=== PATIENT | male | born 1955 | race Caucasian/White ===

== ENCOUNTER 2019-10-27 17:07 | Emergency (ER) | payer BC ==
[~2019-10-27 17:07] MED LIST: PHENYLEPHRINE HCL INJ/PF 10 MG/1 ML SDV ONE
[2019-10-27] MEDS ORDERED: NORMAL SALINE 1000 ML 1,000 ML IV PRN (17:15)
--- NOTE | 2019-10-27 17:15 | ER Document Report ---
ED Medical Screen (RME) - General Chief Complaint: Difficulty Swallowing Stated Complaint: DIFFICULTY SWALLOWING Time Seen by Provider: 10/27/19 17:12 Information source: Patient TRAVEL OUTSIDE OF THE [place] IN LAST 30 DAYS: No - HPI Notes: 10/27/19 17:14 This is a 64-year-old male who presents to the emergency room today stating that he took some Aleve prior to arrival and feels as though it is stuck in his throat is unable to get it down he has audible stridorous sounds he also has not taken his blood pressure medicine in over a month and is rather hypertensive.
[2019-10-27] MEDS ORDERED: GLUCAGON,HUMAN RECOMB 1 MG INJ SUBCUT ONE (17:16)
[2019-10-27] MEDS ORDERED: HYDRALAZINE HCL INJ/PF 20 MG/1 ML SDV IV ONE ×2 (17:39→18:57)
[2019-10-27 17:54] LABS: ABSOLUTE LYMPHOCYTES (AUTO) 1.6 10^3/uL (0.5-4.7); ABSOLUTE MONOCYTES (AUTO) 0.5 10^3/uL (0.1-1.4); ABSOLUTE NEUT (AUTO) 6.5 10^3/uL (1.7-8.2); ALBUMIN 4.4 g/dL (3.5-5.0); ALKALINE PHOSPHATASE 84 U/L (38-126); ANION GAP 8 (5-19); ASPARTATE AMINO TRANSFERASE 19 U/L (17-59); BASOPHILS % (AUTO) 0.3 % (0-2); BILIRUBIN,DIRECT 0.3 mg/dL (0.0-0.4); BILIRUBIN,TOTAL 0.8 mg/dL (0.2-1.3); BLOOD UREA NITROGEN 10 mg/dL (7-20); CALCIUM 9.6 mg/dL (8.4-10.2); CARBON DIOXIDE 33 mmol/L (22-30); CHLORIDE 100 mmol/L (98-107); EOSINOPHILS % (AUTO) 0.3 % (0-6); GLUCOSE 168 mg/dL (75-110); HEMATOCRIT 53.8 % (37.9-51.0); HEMOGLOBIN 18.8 g/dL (13.5-17.0); LYMPHOCYTES % (AUTO) 18.1 % (13-45); MEAN CORPUSCULAR HEMOGLOBIN 34.5 pg (27.0-33.4); MEAN CORPUSCULAR HGB CONC 34.9 g/dL (32.0-36.0); MEAN CORPUSCULAR VOLUME 99 fl (80-97); MONOCYTES % (AUTO) 5.8 % (3-13); PLATELET COUNT 118 10^3/uL (150-450); RED BLOOD COUNT 5.45 10^6/uL (4.35-5.55); RED CELL DISTRIBUTION WIDTH 13.2 % (11.5-14.0); SEGMENTED NEUTROPHILS % (AUTO) 75.5 % (42-78); TOTAL CELLS COUNTED % (AUTO) 100 %; TOTAL PROTEIN 7.8 g/dL (6.3-8.2); WHITE BLOOD COUNT 8.6 10^3/uL (4.0-10.5)
--- NOTE | 2019-10-27 18:05 | RADIOLOGY REPORT (SQ) ---
EXAM DESCRIPTION: CHEST SINGLE VIEW COMPLETED DATE/TIME: 10/27/2019 5:54 pm REASON FOR STUDY: htn COMPARISON: CT abdomen and pelvis 07/15/2014. EXAM PARAMETERS: NUMBER OF VIEWS: One view. TECHNIQUE: Single frontal radiographic view of the chest acquired. RADIATION DOSE: NA LIMITATIONS: Patient positioning. FINDINGS: LUNGS AND PLEURA: The patient is rotated. No consolidation, pneumothorax or pleural effus ion. MEDIASTINUM AND HILAR STRUCTURES: Contour normal. HEART AND VASCULAR STRUCTURES: Heart normal in size. No overt vascular congestion. BONES: Multilevel degenerative changes at the spine. HARDWARE: None in the chest. IMPRESSION: NO ACUTE RADIOGRAPHIC FINDING IN THE CHEST. TECHNICAL DOCUMENTATION: JOB ID: [id number] [employer]- All Rights Reserved Reading location - IP/workstation name: [email or web address]
--- NOTE | 2019-10-27 18:42 | ER Document Report ---
ED General <HANK FOREMAN - Last Filed: 10/28/19 01:40> - General TRAVEL OUTSIDE OF THE [place] IN LAST 30 DAYS: No - Related Data Home Medications: supposed to take BP meds <JULITO GONZALEZ - Last Filed: 10/28/19 09:43> - General Chief Complaint: Choked/Choking Stated Complaint: DIFFICULTY SWALLOWING Time Seen by Provider: 10/27/19 17:12 Primary Care Provider: AVRIL GAONA PA-C [Primary Care Provider] - Follow up as needed Notes: 64 year old noncompliant gentleman with dm, htn has complaints of cough, choking and inability to swallow after attempting to ingest 2 advils earlier today. About 1-2 hours prior to presentation took 2 advil and layed down. Now he can not tolerate his secretions well. No recent illness. He has a h/o htn and dm and has been out of his medicine for 1 month or so reportedly. He denies recent difficulty with swallowing. Long time heavy smoker. Goning to follow up with [facility] reportedly but yet to see them. 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 Chart shows past history of right renal abnormality that has not been followed up. tells me that was a kidney stone and is fine now. (JULITO GONZALEZ) - Related Data Allergies/Adverse Reactions: No Known Allergies Allergy (Unverified 10/27/19 17:21) Past Medical History - Social History Frequency of alcohol use: None Drug Abuse: None Lives with: Family Family History: Reviewed & Not Pertinent <HANK FOREMAN - Last Filed: 10/28/19 01:40> - General Information source: Patient - Social History Smoking Status: Current Every Day Smoker Patient has suicidal ideation: No Patient has homicidal ideation: No <JULITO GONZALEZ P - Last Filed: 10/28/19 09:43> Review of Systems - Review of Systems Constitutional: No symptoms reported EENT: No symptoms reported Cardiovascular: No symptoms reported Respiratory: No symptoms reported Gastrointestinal: See HPI, Other - difficulty swallowing Genitourinary: No symptoms reported Male Genitourinary: No symptoms reported Musculoskeletal: No symptoms reported Skin: No symptoms reported Hematologic/Lymphatic: No symptoms reported Neurological/Psychological: No symptoms reported <JULITO GONZALEZ P - Last Filed: 10/28/19 09:43> Physical Exam - Vital signs Interpretation: Normal - General General appearance: Appears well, Alert - HEENT Head: Normocephalic, Atraumatic Eyes: Normal Pupils: PERRL - Respiratory Respiratory status: No respiratory distress Chest status: Nontender Breath sounds: Normal Chest palpation: Normal - Cardiovascular Rhythm: Regular Heart sounds: Normal auscultation Murmur: No - Abdominal Inspection: Normal Distension: No distension Bowel sounds: Normal Tenderness: Nontender Organomegaly: No organomegaly - Extremities General upper extremity: Normal inspection, Nontender, Normal color, Normal ROM, Normal temperature General lower extremity: Normal inspection, Nontender, Normal color, Normal ROM, Normal temperature, Normal weight bearing. No: Nighat's sign - Neurological Neuro grossly intact: Yes Cognition: Normal Orientation: AAOx4 [place] Coma Scale Eye Opening: Spontaneous [place] Coma Scale Verbal: Oriented [place] Coma Scale Motor: Obeys Commands [place] Coma Scale Total: 15 Speech: Normal Motor strength normal: LUE, RUE, LLE, RLE Sensory: Normal - Psychological Associated symptoms: Normal affect, Normal mood - Skin Skin Temperature: Warm Skin Moisture: Dry Skin Color: Normal <JULIOT GONZALEZ P - Last Filed: 10/28/19 09:43> - Vital signs Vitals: Temp Pulse Resp BP Pulse Ox 97.3 F 74 20 228/112 H 97 10/27/19 17:12 10/27/19 17:12 10/27/19 17:12 10/27/19 17:12 10/27/19 17:12 Course - Laboratory Result Diagrams: 10/27/19 17:26 10/27/19 17:26 - Diagnostic Test Radiology reviewed: Reports reviewed <HANK FOREMAN H - Last Filed: 10/28/19 01:40> - Laboratory Result Diagrams: 10/27/19 17:26 10/27/19 17:26 - Diagnostic Test Radiology reviewed: Image reviewed, Reports reviewed - EKG Interpretation by Me EKG shows normal: Sinus rhythm Rate: Normal Rhythm: NSR Ringoes/QRS: Left axis deviation - NSR Left axis deviation 65 BPM repolarization abnormality. My interpretation. <JULITO GONZALEZ P - Last Filed: 10/28/19 09:43> - Re-evaluation Re-evalutation: 10/28/19 01:40 Patient was signed out to me at shift change from Dr. Gonzalez. The patient came to the ER for a food bolus stuck in his throat. Dr. Rodas was able to dislodge the bolus. The patient apparently had a drop in his blood pressure likely from anesthesia. An EKG was done after his procedure and there was a concern of ST depressions. The patient's EKG pos precedure looks no different then the EKG he had on his initial presentation to the ER. Based on the patient's age however, a set of serial Trops were ordered (both were negative). Patient told to have an outpatient stress test. (HANK FOREMAN) 10/27/19 18:40 MDM 64 year old with upper esophageal obstructive symptoms. SBP very elevated upon arrival. Better after IV hydralazine. Discussed with need to get seen regarding the right kidney abnormality. She expressed understanding. Also failing to take htn and dm meds can lead to permanent disability/ . They understand this. 10/27/19 18:42 I have discussed this pt and his symptoms with Dr. Rodas and he has graciously agreed to see and evaluate. 10/27/19 20:43 Pt is returned from the OR and is being recovered in room 19. Reportedly he had a small piece of food in his distal esophagus which was pushed into the stomach without difficulty. At that time or shortly thereafter there was concern that he had developed st depression laterally and he was to be returned to the ED with a troponin and ck added to the labratory evaluation. Additionally a repeat ekg was ordered rapidly. 10/28/19 09:37 Pt was seen and evaluated by me and then turned over to Dr. Foreman after he returned from the OR where he had a lower esophageal food bolus easily pushed into the stomach with no evidence of stricture noted. Report to me was from Dr. Rodas and the anesthesia team. The pt was recovered without event in room 19. Due to the concern over his ekg - which is certainly not normal at baseline - a decision was made to have 2 tropinins drawn and reviewed in this gentleman. Additionally, I discussed the renal abnormality on his R kidney that needs to be addressed as soon as possible. The and he seem to think that was addressed and was a kidney stone. I relayed to them that from the report here that is not the case. He has been provided with medicine to take for his htn and dm until her arranges the close follow up we have discussed. Also knows to stop smoking as we have discussed this as well. (JULITO GONZALEZ) - Vital Signs Vital signs: Temp Pulse Resp BP Pulse Ox 97.6 F 53 L 17 162/77 H 94 10/27/19 18:54 10/27/19 18:54 10/28/19 02:05 10/28/19 02:05 10/28/19 02:05 - Laboratory Laboratory results interpreted by me: 10/27/19 10/27/19 17:26 17:26 Hgb 18.8 H Hct 53.8 H MCV 99 H MCH 34.5 H Plt Count 118 L Carbon Dioxide 33 H Glucose 168 H Critical Care Note - Critical Care Note Total time excluding time spent on procedures (mins): 30 <JULITO GONZALEZ - Last Filed: 10/28/19 09:43> Discharge <HANK FOREMAN - Last Filed: 10/28/19 01:40> - Discharge Admitting Provider: Surgicalist <JULITO GONZALEZ - Last Filed: 10/28/19 09:43> - Discharge Clinical Impression: Structural abnormality of kidney, Hypertensive urgency Esophageal foreign body Qualifiers: Encounter type: initial encounter Qualified Code(s): T18.108A - Unspecified foreign body in esophagus causing other injury, initial encounter Hypertension Qualifiers: Hypertension type: unspecified Qualified Code(s): I10 - Essential (primary) hypertension Diabetes mellitus Qualifiers: Diabetes mellitus type: type 2 Diabetes mellitus usp insulin use: without usp use Diabetes mellitus complication status: with other specified complication Qualified Code(s): E11.69 - Type 2 diabetes mellitus with other specified complication Condition: Fair Disposition: HOME, SELF-CARE Instructions: Esophageal Spasm ([facility]), Esophageal Foreign Object Removal ([facility]), Esophageal Foreign Body ([facility]), Esophagitis ([facility]), High Blood Pressure ([facility]), High Blood Pressure, Requiring Treatment ([facility]), Stop Smoking ([facility]) Additional Instructions: You must follow up regarding the right kidney abnormality. You must have an ultrasound or an MRI or cat scan regarding that kidney. Failure to follow up regarding that may lead to or permanent disability. Please return here for chest pain, shortness of breath or other problems or concerns. Prescriptions: Hydralazine HCl [Apresoline 10 mg Tablet] 10 mg PO QID #40 tab Metformin HCl [Glucophage] 500 mg PO BID #60 tablet Referrals: AVRIL GAONA PA-C [Primary Care Provider] - Follow up as needed
--- NOTE | 2019-10-27 18:43 | PDOC H&P ---
History of Present Illness Admission Date/PCP: AVRIL GAONA PA-C Patient complains of: Inability to swallow History of Present Illness: HÉCTOR BLANKENSHIP is a 64 year old male with a 3 to 4-hour history of an inability to swallow. The patient reports eating ravioli this morning without any difficulty. He also reports taking 2 Advil at 1 PM for a headache, without any difficulty. The patient subsequently ate a ham and cheese "wrap". He felt the ham and cheese gets stuck in his esophagus. He has since been unable to swallow. He cannot tolerate his own secretions. He denies shortness of breath, chest pain, cough, fevers, chills, nausea, vomiting, melena, hematochezia, hematemesis, abdominal pain, dizziness, blurry vision, orthostasis. He is an uncontrolled diabetic, and noncompliant with his diabetic and anti-hypertensive medications. Nothing makes his symptoms better or worse. Social History Smoking Status: Current Every Day Smoker Frequency of Alcohol Use: Social Hx Recreational Drug Use: No Hx Prescription Drug Abuse: No Family History Parental Family History Reviewed: Yes Children Family History Reviewed: Yes Sibling(s) Family History Reviewed.: Yes Medication/Allergy Allergies/Adverse Reactions: No Known Allergies Allergy (Unverified 10/27/19 17:21) Review of Systems Constitutional: ABSENT: anorexia, chills, fatigue Eyes: ABSENT: visual disturbances Ears: ABSENT: hearing changes Nose, Mouth, and Throat: ABSENT: mouth pain, sore throat Cardiovascular: ABSENT: chest pain, dyspnea on exertion Respiratory: ABSENT: cough Gastrointestinal: PRESENT: dysphagia. ABSENT: abdominal pain, bloating, h ematemesis, hematochezia, melena, nausea, vomiting Genitourinary: ABSENT: difficulty urinating Musculoskeletal: ABSENT: back pain Integumentary: ABSENT: diaphoresis, erythema Neurological: ABSENT: confusion, convulsions, dizziness Psychiatric: ABSENT: anxiety, depression Endocrine: ABSENT: cold intolerance, heat intolerance Hematologic/Lymphatic: ABSENT: easy bleeding, easy bruising Physical Exam Vital Signs: Temp Pulse Resp BP Pulse Ox 97.3 F 74 20 203/100 H 97 10/27/19 17:12 10/27/19 17:12 10/27/19 18:00 10/27/19 17:57 10/27/19 18:00 Intake & Output 10/26/19 10/27/19 10/28/19 06:59 06:59 06:59 Weight 78 kg General appearance: PRESENT: no acute distress, cooperative Head exam: PRESENT: atraumatic, normocephalic Eye exam: PRESENT: EOMI, PERRLA. ABSENT: scleral icterus Mouth exam: PRESENT: moist, neck supple Neck exam: ABSENT: meningismus, tenderness, thyromegaly, tracheal deviation Respiratory exam: PRESENT: clear to auscultation maren, unlabored. ABSENT: chest wall tenderness, tachypnea, wheezes Cardiovascular exam: PRESENT: RRR Pulses: PRESENT: normal radial pulses Vascular exam: PRESENT: normal capillary refill GI/Abdominal exam: PRESENT: soft. ABSENT: distended, firm, guarding, tenderness Rectal exam: PRESENT: deferred Musculoskeletal exam: ABSENT: deformity Neurological exam: PRESENT: alert, awake, oriented to person, oriented to place, oriented to time, oriented to situation, CN II-XII grossly intact Psychiatric exam: ABSENT: agitated, anxious, depressed Focused psych exam: ABSENT: delusional Skin exam: ABSENT: cyanosis, erythema, jaundice Results Laboratory Results: 10/27/19 17:26 10/27/19 17:26 10/27/19 10/27/19 17:26 17:26 WBC 8.6 RBC 5.45 Hgb 18.8 H Hct 53.8 H MCV 99 H MCH 34.5 H MCHC 34.9 RDW 13.2 Plt Count 118 L Seg Neutrophils % 75.5 Sodium 140.7 Potassium 4.0 Chloride 100 Carbon Dioxide 33 H Anion Gap 8 BUN 10 Creatinine 0.94 Est GFR ( Amer) > 60 Glucose 168 H Calcium 9.6 Total Bilirubin 0.8 AST 19 Alkaline Phosphatase 84 Total Protein 7.8 Albumin 4.4 Lipase 75.7 Impressions: Chest X-Ray 10/27/19 17:36 IMPRESSION: NO ACUTE RADIOGRAPHIC FINDING IN THE CHEST. Assessment & Plan - Diagnosis (1) Esophageal foreign body Qualifiers: Encounter type: initial encounter Qualified Code(s): T18.108A - Unspecified foreign body in esophagus causing other injury, initial encounter Is this a current diagnosis for this admission?: Yes - Plan Summary Plan Summary: This is a 64-year-old male who swallowed a ham and cheese "wrap". The ham and cheese became lodged in his esophagus, and he cannot swallow. He cannot tolerate his own secretions. It has been several hours, without resolution. Glucagon was unsuccessful. I have discussed operative intervention with the patient and his family. I have offered EGD with extraction of the foreign body. I have discussed the risks and benefits of the procedure, including (but not limited to) perforation of the esophagus. Any complications from the procedure would require transfer to a higher level of care. This has also been relayed to the patient and his family. They are in agreement with the treatment plan. They have requested that EGD be performed at this institution, to help alleviate his symptoms. Informed consent was obtained from the patient. All questions were answered.
[2019-10-27] MEDS ORDERED: PROPOFOL INJ 200 MG/20 ML VIAL IV ONE (19:41)
[2019-10-27] MEDS ORDERED: ONDANSETRON HCL INJ/PF 4 MG/2 ML SDV ONE (19:41)
[2019-10-27] MEDS ORDERED: LIDOCAINE 2% INJ-PF (20 MG/ML) 10 ML AMPUL ONE (19:41)
[2019-10-27] MEDS ORDERED: HYDRALAZINE HCL INJ/PF 20 MG/1 ML SDV ONE (19:51)
[2019-10-27] MEDS ORDERED: LABETALOL HCL INJ 20 MG/4 ML DISP.SYRIN IV ONE (20:21)
[2019-10-27] MEDS ORDERED: METOPROLOL TARTRATE PF/INJ 5 MG/5 ML SDV IV ONE (20:22)
[2019-10-27] MEDS ORDERED: ESMOLOL HCL INJ/PF 100 MG/10 ML SDV IV ONE (20:22)
--- NOTE | 2019-10-27 20:32 | Operative Report ---
Nonrecallable Operative Report DATE OF SURGERY: 10/27/19 PREOPERATIVE DIAGNOSIS: Food bolus lodged in the esophagus. POSTOPERATIVE DIAGNOSIS: 1. Food bolus lodged in the distal esophagus, easily pushed through to the stomach with EGD. 2. No evidence of stricture or malignancy on today's examination. 3. EKG changes, concerning for cardiac event at the end of the procedure. OPERATION: EGD with dislodgment of distal esophageal food bolus. SURGEON: YASH MEJIAS ANESTHESIA: GA TISSUE REMOVED OR ALTERED: None COMPLICATIONS: EKG changes consistent with a cardiac event at the end of the procedure. ESTIMATED BLOOD LOSS: None PROCEDURE: Procedure in detail: After informed consent was obtained, the patient was brought into the operating room and endotracheal anesthesia was obtained. The flexible gastroscope was inserted through the oropharynx, and into the esophagus. the scope was pushed past the piriform sinus, through the cervical esophagus, through the thoracic esophagus, to the distal esophagus. In the distal esophagus there was particulate food somewhat lodged at the gastroesophageal junction. The scope was used to push this food bolus through. This was performed without incident. The scope passed easily into the stomach. Next, the esophagus was examined. There is no evidence of stricture, ulceration, mass, or lesion. The scope was then brought up the remainder of the esophagus. The scope was removed from the patient, and the procedure was concluded. At this time it was noted that the patient had EKG changes suspicious for ST depressions. The procedure was concluded, and the patient was urgently transferred back to the emergency department for cardiac work-up. Discussion was held with the emergency room physician, in anticipation of the patient returning for further work-up. Condition: Fair.
[2019-10-27 21:18] LABS: CREATINE KINASE MB 1.2 ng/mL (<4.55); TROPONIN I 0.019 ng/mL
[2019-10-28 02:20] VITALS: BP 162/77
--- NOTE | 2019-10-28 05:46 | EKG REPORT ---
SEVERITY:- ABNORMAL ECG - SINUS RHYTHM LEFT ATRIAL ABNORMALITY LEFT AXIS DEVIATION LVH WITH SECONDARY REPOLARIZATION ABNORMALITY : Confirmed by: Chel Aleman MD 28-Oct-2019 05:46:19
--- NOTE | 2019-10-28 05:46 | EKG REPORT ---
SEVERITY:- ABNORMAL ECG - SINUS ARRHYTHMIA, RATE 52-79 PROBABLE LEFT ATRIAL ABNORMALITY LVH WITH SECONDARY REPOLARIZATION ABNORMALITY BORDERLINE PROLONGED QT INTERVAL : Confirmed by: Chel Aleman MD 28-Oct-2019 05:46:13
== END 2019-10-28 02:26 | disposition home or self-care (01) ==
LOC: ER 17:07
DX: T18.128A Food in esophagus causing other injury, initial encounter (principal); X58.XXXA Exposure to other specified factors, initial encounter; I16.0 Hypertensive urgency; I10 Essential (primary) hypertension; E11.8 Type 2 diabetes mellitus with unspecified complications; Q63.9 Congenital malformation of kidney, unspecified; F17.200 Nicotine dependence, unspecified, uncomplicated
CPT/HCPCS: 93005 ×2; 96376; 99291; 96361; 96374; 96375; 43247; 36415; 82553; 82550; 83690; 85025; 80053; 84484; 71045; 93010; 00731; J0360; J3490 ×4; J2370; J2405; J7030; J2704; 731

== ENCOUNTER 2019-10-28 14:09 | Emergency (ER) | payer BC ==
--- NOTE | 2019-10-28 14:25 | ER Document Report ---
ED Medical Screen (RME) - General Chief Complaint: Difficulty Swallowing Stated Complaint: FOREIGN BODY/TROUBLE SWALLOWING Time Seen by Provider: 10/28/19 14:19 Primary Care Provider: AVRIL GAONA PA-C [Primary Care Provider] - Follow up as needed Information source: Patient Notes: Patient presents with difficulty swallowing that started this morning. Patient is unable to manage his oral secretions. Patient was seen here last night for this and had a procedure to remove a food bolus. Patient states that he has not eaten anything since his visit last night. I have greeted and performed a rapid initial assessment of this patient. A comprehensive ED assessment and evaluation of the patient, analysis of test results and completion of the medical decision making process will be conducted by additional ED providers. TRAVEL OUTSIDE OF THE [place] IN LAST 30 DAYS: No - Related Data Allergies/Adverse Reactions: No Known Allergies Allergy (Unverified 10/27/19 17:21) Physical Exam - Vital signs Vitals: Temp Pulse Resp BP Pulse Ox 98.3 F 56 L 18 173/78 H 94 10/28/19 14:17 10/28/19 14:17 10/28/19 14:17 10/28/19 14:17 10/28/19 14:17 - General General appearance: Alert Notes: Patient unable to manage oral secretions - Respiratory Respiratory status: No respiratory distress Breath sounds: Nonproductive cough Course - Vital Signs Vital signs: Temp Pulse Resp BP Pulse Ox 98.3 F 56 L 18 173/78 H 94 10/28/19 14:17 10/28/19 14:17 10/28/19 14:17 10/28/19 14:17 10/28/19 14:17 Doctor's Discharge - Discharge Referrals: AVRIL GAONA PA-C [Primary Care Provider] - Follow up as needed
--- NOTE | 2019-10-28 14:48 | RADIOLOGY REPORT (SQ) ---
EXAM DESCRIPTION: CHEST 2 VIEWS COMPLETED DATE/TIME: 10/28/2019 2:39 pm REASON FOR STUDY: diff swallowing COMPARISON: 10/27/2019 EXAM PARAMETERS: NUMBER OF VIEWS: two views TECHNIQUE: Digital Frontal and Lateral radiographic views of the chest acquired. RADIATION DOSE: NA LIMITATIONS: none FINDINGS: LUNGS AND PLEURA: No opacities, masses or pneumothorax. No pleural effusion. MEDIASTINUM AND HILAR STRUCTURES: No masses or contour abnormalities. HEART AND VASCULAR STRUCTURES: Heart normal size. No evidence for failure. BONES: No acute findings. HARDWARE: None in the chest. OTHER: No other significant finding. IMPRESSION: NO ACUTE RADIOGRAPHIC FINDING IN THE CHEST. TECHNICAL DOCUMENTATION: JOB ID: [id number] 2010 [employer]- All Rights Reserved Reading location - IP/workstation name: [email or web address]
--- NOTE | 2019-10-28 15:48 | ER Document Report ---
Entered by ANUPAMA BRYAN SCRIBE 10/28/19 1534 Acting as scribe for:JULITO ANGELES, DO ED General - General Chief Complaint: Difficulty Swallowing Stated Complaint: FOREIGN BODY/TROUBLE SWALLOWING Time Seen by Provider: 10/28/19 14:19 Primary Care Provider: AVRIL GAONA PA-C [Primary Care Provider] - Follow up as needed Information source: Patient Notes: This 64-year-old male patient presents to the emergency department today with complaints of a sensation that something is stuck in his throat. Patient was seen in this emergency department yesterday for the same thing. Yesterday the patient ate a ham wrap and he had this sensation and he was found to have a piece of ham stuck in his distal esophagus. Patient went to the OR here and this piece of ham was pushed through the distal esophagus and he was discharged home last evening without any problem. Patient states today he tried to eat ravioli's and the same thing happened. Patient denies any pain, fevers, recent travel. Patient states he is unable to handle his secretions now. TRAVEL OUTSIDE OF THE [place] IN LAST 30 DAYS: No - Related Data Allergies/Adverse Reactions: No Known Allergies Allergy (Unverified 10/27/19 17:21) Past Medical History - General Information source: Patient - Social History Smoking Status: Unknown if Ever Smoked Cigarette use (# per day): No Frequency of alcohol use: None Drug Abuse: None Lives with: Family Family History: Reviewed & Not Pertinent Patient has suicidal ideation: No Patient has homicidal ideation: No - Medical History Medical History: Negative Surgical Hx: Negative Review of Systems - Review of Systems Constitutional: No symptoms reported EENT: See HPI, Other - sensation that something is stuck in his throat Cardiovascular: No symptoms reported Respiratory: No symptoms reported Gastrointestinal: No symptoms reported Genitourinary: No symptoms reported Male Genitourinary: No symptoms reported Musculoskeletal: No symptoms reported Skin: No symptoms reported Hematologic/Lymphatic: No symptoms reported Neurological/Psychological: No symptoms reported -: Yes All other systems reviewed and negative Physical Exam - Vital signs Vitals: Temp Pulse Resp BP Pulse Ox 98.3 F 56 L 18 173/78 H 94 10/28/19 14:17 10/28/19 14:17 10/28/19 14:17 10/28/19 14:17 10/28/19 14:17 - Notes Notes: Physical Exam: General: Alert, appears to be somewhat chronically ill, much older than stated age. HEENT: Normocephalic. Atraumatic. PERRL. Extraocular movements intact. No posterior oropharynx erythema or exudate, airway is patent. TMs are clear and non-bulging bilaterally. Neck: Supple. Non-tender. Respiratory: No respiratory distress. Clear and equal breath sounds bilaterally. Cardiovascular: Regular rate and rhythm. Abdominal: Normal Inspection. Non-tender. No distension. Normal Bowel Sounds. Back: No gross abnormalities. Extremities: Moves all four extremities. Upper extremities: Normal inspection. Normal ROM. Lower extremities: Normal inspection. No edema. Normal ROM. Neurological: Normal cognition. AAOx4. Normal speech. Psychological: Normal affect. Normal Mood. Skin: Warm. Dry. Normal color. Course - Re-evaluation Re-evalutation: 10/28/19 18:55 MDM 64 year old male arrives with continued swallowing difficulty after eating ravioli today. Similar yesterday. Still with some difficulty with swallowing here. Can tolerate some h20 and does not want to stay here. Discussed may have to return here and he expressed understanding. Will dc and he does need GI follow up for impaired swallowing. He understands this. Was able to tolerate a bit of water here but did have some gagging after marx. He does tolerate his own secretions. Attempted GI cocktail with him spitting this out. His BP is up a bit and this will be treated. 10/28/19 19:09 Discussed with pt the option of a transfer - [facility] vs [facility] and he is clear he would like to leave. Do not feel this beebe but he has capacity to make this descison. He tells me he will see [facility] or a GI doctor or return here if he can not get and keep liquids down. - Vital Signs Vital signs: Temp Pulse Resp BP Pulse Ox 97.8 F 56 L 22 H 173/78 H 95 10/28/19 17:05 10/28/19 14:17 10/28/19 17:05 10/28/19 14:17 10/28/19 17:05 - Diagnostic Test Radiology reviewed: Reports reviewed Discharge - Discharge Clinical Impression: Esophageal dysmotility Hypertension Qualifiers: Hypertension type: unspecified Qualified Code(s): I10 - Essential (primary) hypertension Condition: Fair Disposition: HOME, SELF-CARE Instructions: Clear Liquid Diet ([facility]) Additional Instructions: Clear liquids and thickened liquid diet. Stop smoking. Take the medicine for your esophagus as directed. Please return here for any problems or any concerns. There is some anneursym of the aorta that needs follow up with the primary doctor as does the degree of blockage that is present in the neck arteries. Take 2 baby aspirin by mouth daily. Remember you are to follow up with cardiology also. Prescriptions: Sucralfate [Carafate Susp 1 Gm/10 Ml Udcup] 1 gm PO TID 10 Days #1 bot Albuterol Sulfate [Proventil Hfa] 6.7 gm IH TID #1 hfa.aer.ad Forms: Elevated Blood Pressure Referrals: AVRIL GAONA PA-C [Primary Care Provider] - Follow up as needed I personally performed the services described in the documentation, reviewed and edited the documentation which was dictated to the scribe in my presence, and it accurately records my words and actions.
--- NOTE | 2019-10-28 17:09 | RADIOLOGY REPORT (SQ) ---
EXAM DESCRIPTION: CT ABD/PELVIS WITH IV ONLY COMPLETED DATE/TIME: 10/28/2019 4:42 pm REASON FOR STUDY: renal cancer history COMPARISON: CT of the abdomen pelvis with contrast from 03/03/2014. TECHNIQUE: CT scan of the abdomen and pelvis performed using helical scanning technique with dynamic intravenous contrast injection. No oral contrast. Images reviewed with lung, soft tissue, and bone windows. Reconstructed coronal and sagittal MPR images reviewed. All images stored on PACS. All CT scanners at this facility use dose modulation, iterative reconstruction, and/or weight based d osing when appropriate to reduce radiation dose to as low as reasonably achievable (ALARA). [facility]: Dose Right [facility]: CareDose [facility]: Dose Right [facility]: Teradose 4D [facility]: [employer] CONTRAST TYPE AND DOSE: Contrast/concentration: Isovue 350.00 mg/ml; Total Contrast Delivered: 86.0 ml; Total Saline Delivered: 70.0 ml RENAL FUNCTION: Creatinine 0.94 milligrams/deciliter. LIMITATIONS: None. FINDINGS: LOWER CHEST: Refer to the separate report of the CT of the chest. LIVER: The relative hypoattenuation hepatic parenchyma compared to the splenic parenchyma on the port al venous phase is suggestive of hepatic steatosis. The portal veins are patent. There is no hepati c mass. SPLEEN: No splenomegaly or splenic mass. PANCREAS: No acute abnormality of the pancreas. GALLBLADDER: No abnormality that is apparent on CT. ADRENAL GLANDS: The nodular thickening of the adrenal glands could represent adenomatous hyperplasia . RIGHT KIDNEY AND URETER: Evaluation is limited based on a single phase contrast-enhanced CT ; there i s a 7.1 x 6 cm partially exophytic water attenuation lesion with internal septations in the upper preston e of the kidney. There is a separate hypodense structure posterior to the lesion that measures 1.6 x 0.9 cm. There is no solid mass, hydronephrosis, hydroureter or ureterolithiasis. LEFT KIDNEY AND URETER: There are several cortical-based hypodense lesions that measure less than 1 c m in diameter ; these lesions are stable in size and appearance from 07/15/2014. There is a 5 mm calculus within a lower pole calyx. There is no associated hydronephrosis, hydrouret er or ureterolithiasis. 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 RETROPERITONEUM: No retroperitoneal adenopathy, hemorrhage or mass. BOWEL AND PERITONEAL CAVITY: There is no bowel obstruction, bowel wall thickening or pericolonic/ per ienteric inflammation. There is no mesenteric adenopathy, free intraperitoneal fluid or mesenteric/ omental inflammation APPENDIX: Normal. PELVIS: The prostate gland is enlarged and heterogeneous with central calcifications. The urinary bl adder is normal in appearance. ABDOMINAL WALL: The inguinal canals are patulous. BONES: No fracture or osseous lesion. OTHER: No other finding. IMPRESSION: 1. Minimally complex cyst in the right kidney that measures 7.1 x 6 cm. There is no so lid renal mass. 2. 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 3. Other findings as detailed above. COMMENT: Evaluation is limited based on a single phase contrast-enhanced CT. If there is concern fo r recurrent renal cell carcinoma of the and a renal protocol multiphase contrast-enhanced CT or MRI i s recommended. TECHNICAL DOCUMENTATION: JOB ID: [id number] Quality ID # [id number]: Final reports with documentation of one or more dose reduction techniques (e.g., Au tomated exposure control, adjustment of the mA and/or kV according to patient size, use of iterative reconstruction technique) 2010 [employer]- All Rights Reserved Reading location - IP/workstation name: [email or web address]
--- NOTE | 2019-10-28 17:28 | RADIOLOGY REPORT (SQ) ---
EXAM DESCRIPTION: CT SOFT TISSUE NECK WITH COMPLETED DATE/TIME: 10/28/2019 4:42 pm REASON FOR STUDY: dysphagia COMPARISON: None. TECHNIQUE: Post IV contrasted scanning from skull base through lung apices with review of bone, soft tissue and lung windows. Reconstructed coronal and sagittal MPR images reviewed. All images stored on PACS. All CT scanners at this facility use dose modulation, iterative reconstruction, and/or weight based d osing when appropriate to reduce radiation dose to as low as reasonably achievable (ALARA). [facility]: Dose Right [facility]: CareDose [facility]: Dose Right [facility]: Teradose 4D [facility]: [employer] CONTRAST TYPE AND DOSE: 86 mL Omnipaque 350- low osmolar. RENAL FUNCTION: Creatinine 0.94 milligrams/deciliter RADIATION DOSE: CT Rad equipment meets quality standard of care and radiation dose reduction techniq ues were employed. CTDIvol: 16.6 - 20.9 mGy. DLP: 3272 mGy-cm. . LIMITATIONS: None. FINDINGS: SKULL BASE: Intact. MAJOR SALIVARY GLANDS: There is no abnormality of the parotid and submandibular glands. LYMPHADENOPATHY: No adenopathy. MUCOSAL MASSES OR ASYMMETRY: No mass or asymmetry. LARYNX/CORDS: No abnormality. VASCULAR STRUCTURES: There are eccentric noncalcified atheromatous plaques at the left carotid bifurc ation that result in a less than 75% luminal stenosis. BONES: There is no fracture or osseous lesion. THYROID: The thyroid gland is homogeneous. PARANASAL SINUSES: No mucoperiosteal thickening or air-fluid level. OTHER: There is a 1.2 x 1.1 cm subcutaneous lesion in the left cheek that abuts the skin surface and that could represent an epidermal inclusion cyst. IMPRESSION: 1. No cervical adenopathy or mass. 2. Eccentric noncalcified atheromatous plaques at the left carotid bifurcation that result in a less than 75% luminal stenosis. 3. 1.2 x 1.1 cm subcutaneous lesion the left cheek that could represent an epidermal inclusion cyst. TECHNICAL DOCUMENTATION: JOB ID: [id number] Quality ID # 436: Final reports with documentation of one or more dose reduction techniques (e.g., Au tomated exposure control, adjustment of the mA and/or kV according to patient size, use of iterative reconstruction technique) 2010 [employer]- All Rights Reserved Reading location - IP/workstation name: [email or web address]
--- NOTE | 2019-10-28 17:37 | RADIOLOGY REPORT (SQ) ---
EXAM DESCRIPTION: CT CHEST WITH COMPLETED DATE/TIME: 10/28/2019 4:43 pm REASON FOR STUDY: dysphagia COMPARISON: None. TECHNIQUE: CT scan of the chest performed using helical scanning technique with dynamic intravenous contrast injection. Images reviewed with lung, soft tissue and bone windows. Reconstructed coronal and sagittal MPR and MIP images reviewed. All images stored on PACS. All CT scanners at this facility use dose modulation, iterative reconstruction, and/or weight based d osing when appropriate to reduce radiation dose to as low as reasonably achievable (ALARA). [facility]: Dose Right [facility]: CareDose [facility]: Dose Right [facility]: Teradose 4D [facility]: [employer] CONTRAST TYPE AND DOSE: 86 mL Omnipaque 350- low osmolar. RENAL FUNCTION: GFR > 60. LIMITATIONS: None. FINDINGS: LUNGS AND PLEURA: The saber sheath configuration of the trachea is pathognomonic for COPD. There is dependent debris within the lumen of the trachea and mild peribronchial thickening with knowles bsegmental mucous plugs in the right upper lobe bronchi. There is no associated consolidation, pleur al effusion, pneumothorax, or greater than 6 mm solid pulmonary nodule. HILAR AND MEDIASTINAL STRUCTURES: No adenopathy or mass. HEART AND VASCULAR STRUCTURES: No aneurysm or dissection of the thoracic aorta. The heart is enlarge d and there is mild atherosclerotic calcification of the coronary arteries. There is no pericardial effusion. HARDWARE: None in the chest. UPPER ABDOMEN: Refer to the separate report of the CT of the abdomen. THYROID AND OTHER SOFT TISSUES: No mass or adenopathy. BONES: No fracture or osseous lesion. OTHER: Upper lobe predominant paraseptal and centrilobular emphysema. IMPRESSION: COPD without a superimposed acute cardiopulmonary process. TECHNICAL DOCUMENTATION: JOB ID: [id number] Quality ID # [id number]: Final reports with documentation of one or more dose reduction techniques (e.g., Au tomated exposure control, adjustment of the mA and/or kV according to patient size, use of iterative reconstruction technique) 2010 [employer]- All Rights Reserved Reading location - IP/workstation name: [email or web address]
[2019-10-28] MEDS ORDERED: MAG HYDROX/AL HYDROX/SIMETH SUSP 30 ML UDCUP PO ONE (17:50)
[2019-10-28] MEDS ORDERED: LIDOCAINE 2% VISCOUS SOLN 15 ML UDCUP PO ONE (17:50)
[2019-10-28] MEDS ORDERED: HYDRALAZINE HCL INJ/PF 20 MG/1 ML SDV IV ONE (18:57)
[2019-10-28 19:44] VITALS: BP 178/82
== END 2019-10-28 19:44 | disposition home or self-care (01) ==
LOC: ER 14:09
DX: K22.8 Other specified diseases of esophagus (principal); R13.10 Dysphagia, unspecified; R09.89 Other specified symptoms and signs involving the circulatory and respiratory systems; I10 Essential (primary) hypertension
CPT/HCPCS: 99284; 96374; 71046; 70491; 71260; 74177; J0360; J3490

== ENCOUNTER 2020-01-11 22:02 | Emergency (ER) | payer BC ==
--- NOTE | 2020-01-11 23:39 | ER Document Report ---
Entered by MAINOR RIDER SCRIBE 01/11/20 7997 Acting as scribe for:CELI GIL IV, MD ED General - General Chief Complaint: Problem with Feeding Tube Stated Complaint: FEEDING TUBE CAME OUT Time Seen by Provider: 01/11/20 22:50 Primary Care Provider: AVRIL GAONA PA-C [Primary Care Provider] - Follow up as needed Mode of Arrival: Ambulatory Information source: Patient Notes: This 64 year old male patient presents to the ED today with complaints of dislodged G-tube that occurred about x1 hour prior to arrival. Patient states that he was getting ready for bed when his G-tube "popped out." He reports that the feeding tube was placed shortly after his CVA on 10/27/2019 due to dysphagia. He notes that he is going to therapy for his dysphagia in [place]. TRAVEL OUTSIDE OF THE [place] IN LAST 30 DAYS: No - Related Data Allergies/Adverse Reactions: No Known Allergies Allergy (Unverified 10/27/19 17:21) Past Medical History - General Information source: Patient - Social History Smoking Status: Current Every Day Smoker Cigarette use (# per day): Yes Chew tobacco use (# tins/day): No Smoking Education Provided: No Lives with: Spouse/Significant other Family History: Reviewed & Not Pertinent Patient has suicidal ideation: No Patient has homicidal ideation: No - Past Medical History Cardiac Medical History: Reports: Hx Hypercholesterolemia, Hx Hypertension Neurological Medical History: Reports: Hx Cerebrovascular Accident Endocrine Medical History: Reports: Hx Diabetes Mellitus Type 1, Hx Diabetes Mellitus Type 2 Review of Systems - Review of Systems Constitutional: No symptoms reported EENT: No symptoms reported Cardiovascular: No symptoms reported Respiratory: Sputum Gastrointestinal: See HPI, Other - dislodged G-tube Genitourinary: No symptoms reported Male Genitourinary: No symptoms reported Musculoskeletal: No symptoms reported Skin: No symptoms reported Hematologic/Lymphatic: No symptoms reported Neurological/Psychological: No symptoms reported -: Yes All other systems reviewed and negative Physical Exam - Vital signs Vitals: Temp 97.7 F 01/11/20 22:03 Interpretation: Normal - General General appearance: Alert, Other - Talkative In distress: None - HEENT Head: Normocephalic, Atraumatic Eyes: Normal Pupils: PERRL - Abdominal Inspection: Other - Gastrostomy site appears patent and is missing G tube Distension: No distension Bowel sounds: Normal Tenderness: Nontender - Abdomen soft Organomegaly: No organomegaly - Back Back: Normal, Nontender - Extremities General upper extremity: Normal inspection General lower extremity: Normal inspection - Neurological Neuro grossly intact: Yes Orientation: AAOx4 - Psychological Associated symptoms: Normal affect, Normal mood - Skin Skin Temperature: Warm Skin Moisture: Dry Skin Color: Normal Course - Re-evaluation Re-evalutation: 01/12/20 00:32 Results of ED MSE discussed with patient. All questions were answered prior to discharge. 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 Emergency signs and symptoms, reasons to return to the emergency department discussed with patient. - Vital Signs Vital signs: Temp Pulse Resp BP Pulse Ox 97.7 F 59 L 18 157/70 H 97 01/11/20 22:07 01/11/20 22:07 01/11/20 22:07 01/11/20 22:07 01/11/20 22:07 - Diagnostic Test Radiology reviewed: Reports reviewed Procedures - Additional Procedures Gastric tube replacement Time performed: 23:05 Additional Procedures: Gastric tube replacement Notes: 01/12/20 00:28 Patient presented with a dislodged 20 Jamaican G-tube. This MD attempted to place a 18 Jamaican G-tube given that the previous tube is been out for over an hour. This MD met a great deal of resistance trying to pass an 18 Jamaican tube. A 14 Jamaican tube was used instead which passed easily through the ostomy site. Balloon was inflated with 5 cc of air and cuff was moved proximally to secure tube. Patient tolerated procedure well. Postprocedure KUB with Gastrografin shows good gastrostomy tube placement per radiology read. Discharge - Discharge Clinical Impression: Encounter for gastrojejunal tube placement Condition: Good Disposition: HOME, SELF-CARE Additional Instructions: Return to the Emergency Department without delay if any worse. HOME CARE INSTRUCTIONS & INFORMATION: Thank you for choosing us for your medical needs. We hope you're satisfied with the care you received. After you leave, you must properly care for your problem and, at the same time, observe its progress. Any condition can change. Some illnesses can change rapidly over hours or days. If your condition worsens, return to the Emergency Department or see your physician promptly. ABOUT YOUR X-RAYS AND EKG'S: If you had an EKG or X-rays taken, they have been read by the Emergency Physician. The X-rays and EKG's will also be read by a Radiologist or Belt Press Operator within 24 hours. If discrepancies are noted, you will be notified by telephone. Please be certain the ED has a correct telephone number & address where you can be reached. Also, realize that some fractures or abnormalities do not show up on initial X-rays. If your symptoms continue, see your physician. ABOUT YOUR LABORATORY TEST: If you had laboratory tests, the results have been reviewed by the Emergency Physician. Some test results (for example cultures) may not be available for several days. You will be contacted if any test result shows you need additional treatment. Please be certain the ED has a correct telephone number and address where you can be reached. ABOUT YOUR MEDICATIONS: You will receive instructions on how to take your medicine on the prescription label you receive. Additional information may be provided by the Pharmacy. If you have questions afterwards, call the ED for clarification or further instructions. Some prescribed medications may cause drowsiness. Do not perform tasks such as driving a car or operating machinery without consulting your Pharmacist. If you feel you need a refill of pain medication, your condition will need re-evaluation. Please do not call for a refill of any medication. ABOUT YOUR SIGNATURE: Signature of this document acknowledges to followin. Understanding that you received emergency treatment and that you may be released before al medical problems are known or treated. Please be certain the ED has a correct phone number & address where you can be reached. 2. Acknowledgement that you will arrange for follow-up care as recommended. 3. Authorization for the Emergency Physician to provide information to your follow-up Physician in order to maximize your care. AT ANY TIME, IF YOUR SYMPTOMS CHANGE SIGNIFICANTLY OR WORSEN OR YOU DEVELOP NEW SYMPTOMS, RETURN TO THE EMERGENCY DEPARTMENT IMMEDIATELY FOR RE-EVALUATION. OUR GOAL IS TO PROVIDE EXCELLENT MEDICAL CARE! WE HOPE THAT WE HAVE MET YOUR EXPECTATIONS DURING YOUR EMERGENCY DEPARTMENT VISIT AND THAT YOU FEEL YOU HAVE RECEIVED EXCELLENT CARE! Referrals: AVRIL GAONA PA-C [Primary Care Provider] - Follow up as needed I personally performed the services described in the documentation, reviewed and edited the documentation which was dictated to the scribe in my presence, and it accurately records my words and actions.
--- NOTE | 2020-01-12 00:15 | RADIOLOGY REPORT (SQ) ---
CLINICAL INDICATION: check g tube placement, use gastrograffin. TECHNIQUE: 2 image(s) of the abdomen. COMPARISON: None. FINDINGS: The talent scout radiograph demonstrates significant stool within the colon... Gastrostomy tube is identified. The second image demonstrates contrast injection via the gastrostomy tube. This is opacifying gastric fundus. No extravasation.. Vascular calcification. IMPRESSION: Gastrostomy tube is in good position.
[2020-01-12 01:29] VITALS: BP 165/73
== END 2020-01-12 00:55 | disposition home or self-care (01) ==
LOC: ER 22:02
DX: Z43.1 Encounter for attention to gastrostomy (principal); F17.210 Nicotine dependence, cigarettes, uncomplicated; E78.00 Pure hypercholesterolemia, unspecified; I10 Essential (primary) hypertension; E11.9 Type 2 diabetes mellitus without complications; I69.991 Dysphagia following unspecified cerebrovascular disease; R13.10 Dysphagia, unspecified
CPT/HCPCS: 74018; 99283